=== PATIENT | male | born 1985 | race Caucasian/White ===

== ENCOUNTER 2018-06-11 10:05 | Emergency (ER) | payer OTHER ==
[~2018-06-11] VITALS: Ht 193 cm; Wt 77.7 kg
[~2018-06-11 10:05] MED LIST: ALPR0.254 PO
[2018-06-11 10:21] VITALS: BP 136/83
[2018-06-11] MEDS ORDERED: LIDOCAINE-MPF 2%, 2ML ONE (10:48)
[2018-06-11] MEDS ORDERED: DIPH,PERTUSS(ACELL),TET VAC/PF 0.5 ML IM-VACC ONE ×2 (10:48→11:30)
[2018-06-11] MEDS ORDERED: LIDOCAINE 2%, 20ML SQ ONE (11:30)
[2018-06-11] MEDS ORDERED: BACITRACIN ZINC OINT 500U/GM, 0.9 GM ONE (11:58)
== END 2018-06-11 12:09 | disposition home or self-care (01) ==
LOC: ED 12:03
DX: S61.012A Laceration without foreign body of left thumb without damage to nail, initial encounter (principal); W27.8XXA Contact with other nonpowered hand tool, initial encounter; Y93.89 Activity, other specified; Y92.89 Other specified places as the place of occurrence of the external cause; Y99.0 Civilian activity done for income or pay
CPT/HCPCS: 12041; 90471; 90715; 99284; J3490